=== PATIENT | male | born 1930 | race Caucasian/White ===

== ENCOUNTER 2018-07-27 10:26 | Emergency (ER) | payer MEDICARE, MEDICAID ==
[~2018-07-27] VITALS: Ht 167.6 cm; Wt 74.0 kg
[~2018-07-27 10:26] MED LIST: ACTOS15 MG PO; GLUCOPHAGE500 MG PO; KEFLEX500 MG PO; [UNRECOGNIZED DRUG - REMARK]
[2018-07-27] MEDS ORDERED: LEVEMIR100 UNIT/1 SUBQ (10:57)
[2018-07-27] MEDS ORDERED: BUSPIRONE HCL10 MG PO (10:58)
[2018-07-27] MEDS ORDERED: ARICEPT 5 MG TAB5 MG PO (10:59)
[2018-07-27] MEDS ORDERED: DEPAKOTE 250MG250 M1 PO (10:59)
[2018-07-27] MEDS ORDERED: LEXAPRO 10 MG T10 M2 PO (10:59)
[2018-07-27] MEDS ORDERED: NOVOLOG100 UNIT/1 SUBQ (11:00)
[2018-07-27] MEDS ORDERED: PROSCAR 5MG TABL5 MG PO (11:00)
[2018-07-27] MEDS ORDERED: GLIPIZIDE 10 MG10 MG PO (11:00)
[2018-07-27 11:11] LABS: ABSOLUTE BASOPHILS 0.1 thou/uL (0.0-0.2); ABSOLUTE LYMPHOCYTES 1.5 thou/uL (0.8-5.3); ABSOLUTE MONOCYTES 0.7 thou/uL (0.0-1.2); ABSOLUTE NEUTROPHILS 6.3 thou/uL (1.6-8.1); BASOPHILS 0.6 %; EOSINOPHILS 0.2 %; HEMATOCRIT 40.1 % (42.0-52.0); HEMOGLOBIN 13.3 gm/dL (14.0-18.0); LYMPHOCYTES 17.2 %; MCH 31.6 pg (26.0-34.0); MCHC 33.1 g/dL (28.0-37.0); MCV 95.5 fL (80.0-100.0); MONOCYTES 8.4 %; MPV 7.6 fl. (7.2-11.1); NUCLEATED RBCS 0 /100WBC; PLATELET COUNT* 251 thou/uL (150-400); POLYS 73.6 %; RDW-CV 12.9 % (10.5-14.5); WBC 8.5 thou/uL (4.0-11.0)
[2018-07-27 11:18] LABS: ANION GAP 4 mmol/L (7-16); BUN 23 mg/dL (7-18); CALCIUM 9.2 mg/dL (8.5-10.1); CHLORIDE 99 mmol/L (98-107); CO2 29 mmol/L (21-32); CREATININE 1.5 mg/dL (0.6-1.3); GLUCOSE 311 mg/dL (70-99); POTASSIUM 4.8 mmol/L (3.5-5.1); SODIUM 132 mmol/L (136-145)
[2018-07-27 11:19] LABS: URINE BILIRUBIN NEGATIVE (Negative); URINE BLOOD NEGATIVE (Negative); URINE CLARITY CLEAR; URINE COLOR YELLOW; URINE GLUCOSE-RANDOM 2+ (Negative); URINE KETONES NEGATIVE (Negative); URINE LEUKOCYTES-REFLEX 1+ (Negative); URINE NITRITE-REFLEX NEGATIVE (Negative); URINE PROTEIN NEGATIVE (Negative); URINE UROBILINOGEN 0.2 E.U./dl (0.2-1.0)
[2018-07-27 11:25] LABS: ALBUMIN 3.5 g/dL (3.4-5.0); ALKALINE PHOSPHATASE 65 U/L (46-116); SGOT 18 U/L (15-37); SGPT 16 U/L (30-65); TOTAL BILIRUBIN 0.4 mg/dL (<0.1-1.0); TOTAL PROTEIN 7.2 g/dL (6.4-8.2); TROPONIN-I LEVEL <0.06 ng/mL (<0.06)
[2018-07-27 11:40] LABS: SQUAMOUS >10 Many /LPF (0-3); URINE RBC 0-2 Rare /HPF (0-2); URINE WBC-REFLEX >25 Many /HPF (0-5)
[2018-07-27 11:41] LABS: HYALINE CASTS 0-3 Few /LPF (None Seen); MUCUS None Seen strn/LPF (None Seen)
[2018-07-27 11:42] LABS: CRYSTALS None Seen /LPF (None Seen)
[2018-07-27] MEDS ORDERED: KEFLEX500 M1 PO (11:47)
[2018-07-27 12:04] VITALS: BP 148/72
--- NOTE | 2018-07-27 16:33 | EKG ---
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 : 1930 Requested By: Brian Wilson Order Number: [id number] MD: Dao Henderson Measurements Intervals [place] Rate: 65 P: -47 KS: 335 QRS: -24 QRSD: 128 T: -3 QT: 476 QTc: 495 Interpretive Statements Sinus or ectopic atrial rhythm Sinus pause Prolonged KS interval Left bundle branch block No previous ECG available for comparison Electronically Signed On 07-27-2018 16:33:48 CDT by Dao Henderson [email or web address] <ELECTRONICALLY SIGNED> By: Dao Henderson MD, [facility] 07/27/18 1633 1117 111 Dao Henderson MD, FAC /EPI
== END 2018-07-27 12:05 | disposition home or self-care (01) ==
LOC: M.ERS 10:26
PROVIDERS: Emergency Medicine Emergency Medical Services
DX: N39.0 Urinary tract infection, site not specified (principal); I25.10 Atherosclerotic heart disease of native coronary artery without angina pectoris; E11.9 Type 2 diabetes mellitus without complications; Z95.1 Presence of aortocoronary bypass graft; Z85.038 Personal history of other malignant neoplasm of large intestine; Z79.4 Long term (current) use of insulin

== ENCOUNTER 2019-12-10 19:54 | Inpatient (IN) | payer MEDICARE, MEDICAID ==
[~2019-12-10] VITALS: Ht 177.8 cm; Wt 59.9 kg
--- NOTE | ~2019-12-10 | CON ---
[address] [address] CONSULTATION Name: ANGELA WATKINS Room: [address] IN .R.#: [id number] Admission: 12/10/19 Attend Phys: Kevin Guillen MD Discharge: Date of : 31 Report #: [id number] THIS REPORT FOR: //name// CC: Kevin Gaspar DATE OF SERVICE: 12/14/2019 REQUESTING PHYSICIAN: Chris Stanton MD REASON FOR CONSULTATION: Acute kidney injury and hypernatremia. HISTORY OF PRESENT ILLNESS: The patient is an 89-year-old man with medical history significant for advanced dementia, coronary artery disease, and diabetes mellitus type 2. He was transferred here from [facility] after unwitnessed fall. In the Emergency Room, he was found to be hypernatremic with serum sodium of 152. He also had an acute kidney injury with creatinine of 2.6 and was admitted to the hospital. PAST MEDICAL HISTORY: As I mentioned earlier. FAMILY HISTORY: Noncontributory at this age. SOCIAL HISTORY: longterm resident. Unknown tobacco or alcohol abuse. Also, noncontributory to his age. REVIEW OF SYSTEMS: Unobtainable due to his advanced dementia. PHYSICAL EXAMINATION: GENERAL: He is awake but demented. He does not follow commands. VITAL SIGNS: Blood pressure 136/63, heart rate is 58, respiratory rate is 12, and afebrile. HEENT: Pupils are round. NECK: Fatty. LUNGS: Clear. CARDIOVASCULAR: Regular rate. ABDOMEN: Soft. Jackman is in place. EXTREMITIES: Lower extremities without edema. He got some fungal infection of his toenails. ASSESSMENT: 1. Acute kidney injury, most likely due to urinary retention. Jackman catheter was placed by urologist. 2. Hypernatremia, likely due to volume depletion. 3. Dementia. 4. [place] [address] CONSULTATION Name: ROLAND,ANGELA L Room: [address]#: [id number] Admission: 12/10/19 Attend Phys: Kevin Guillen MD Discharge: Date of : 31 Report #: [id number] PLAN: 1. Keep the Jackman in. 2. Continue IV fluids with hypotonic fluids. 3. Follow labs. Thank you very much for asking me to see this patient. By: 1107 [id number] Sousa MD /nt
--- NOTE | ~2019-12-10 | CON ---
[address] [address] CONSULTATION Name: ANGELA WATKINS Room: [address] IN .R#: [id number] Admission: 12/10/19 Attend Phys: Kevin Guillen MD Discharge: Date of : 31 Report #: [id number] THIS REPORT FOR: //name// CC: Kevin Gaspar DATE OF SERVICE: 12/16/2019 INFECTIOUS DISEASE CONSULTATION ATTENDING PHYSICIAN: Dr. Guillen. REASON FOR CONSULTATION: Possible sepsis. HISTORY OF PRESENT ILLNESS: The patient is an 89-year-old white man admitted initially through the Emergency Room to the regular floor. He is subsequently found to be tachypneic with metabolic acidosis and febrile as well as on admission some leukocytosis. He is started on broad-spectrum antibiotic coverage. He is in the ICU, unable to give any information whatsoever. All information on this patient is gathered from the review of his records. He is hospitalized on 12/10/2019 after having suffered a fall at the [facility]. Currently, the patient is unresponsive, tachypneic in the ICU with atrial fibrillation. His arterial blood gases revealed metabolic acidosis, uncompensated with respiratory alkalosis requiring 2 liters of oxygen. He has received vancomycin, Zosyn and metronidazole. All information gathered from review of records. DRUG ALLERGIES: None listed. MEDICATIONS: The patient is currently on vancomycin 500 mg IV b.i.d., Zosyn 3.375 g IV every 8 hours. He is receiving D5 for the normal saline 1000 mL every 20 hours p.r.n., acetaminophen, rivastigmine 4.6 mg transdermal daily, folic acid 1 mg IV daily, nystatin, triamcinolone topical, tamsulosin 0.4 mg at bedtime, escitalopram oxalate 10 mg at bedtime, valproate 125 mg b.i.d., lorazepam 0.5 mg IV p.r.n., olanzapine 5 mg IM t.i.d., hyoscyamine sulfate 0.125 mg p.r.n. intravenously. He is also on treatment with metronidazole 500 mg IV every 8 hours, famotidine, subcutaneous heparin, lorazepam p.r.n., finasteride by mouth p.r.n., glucagon, insulin per sliding scale. PAST MEDICAL HISTORY: Coronary artery disease, coronary artery bypass grafting, previous colon cancer, diabetes mellitus, right knee surgery. On admission, he has significant leukocytosis. He has azotemia as well. SOCIAL HISTORY: See [facility], old records. FAMILY HISTORY: See [facility] [place] [address] CONSULTATION Name: ANGELA WATKINS Room: [address] IN .R.#: [id number] Admission: 12/10/19 Attend Phys: Kevin Guillen MD Discharge: Date of : 31 Report #: [id number] REVIEW OF SYSTEMS: Unable to obtain. PHYSICAL EXAMINATION: GENERAL: Elderly white man, closing eyes tightly, I can examine those. VITAL SIGNS: Presenting with following vital signs: Temperature 100.3 at 4:00 p.m. yesterday, pulse 104, respirations 18, BP 117/63. No further entries since that time. The patient is on 2 liters nasal cannula and I suspect saturation is normal. HEENMT: Head normocephalic, atraumatic. Pupils, unable to examine. Mouth: Dry mucous membrane, missing teeth. NECK: Supple. LUNGS: Basilar crackles. HEART: Rhythm is irregularly irregular with a loud ejection murmur on the left sternal border. ABDOMEN: Reveals surgical scar of cholecystectomy, soft, no masses or megaly. GENITALIA AND RECTAL: Deferred. EXTREMITIES: No clubbing, cyanosis. NEUROLOGIC: Unable to evaluate. LABORATORY DATA: Sodium 147; potassium 3.5, CO2 of 18, on admission was 26; BUN 33, on admission was 57, creatinine is 2.1, on admission was 2.6; glucose 251; magnesium 1.7; albumin 2.5. Folate and B12 levels are within normal range. NT-proBNP significantly elevated. WBC 9900, hemoglobin 12.6 g/dL and platelets 223,000. White blood cell count differential revealed 84% segmented neutrophils. On admission, the urinalysis revealed glycosuria, trace ketones, trace blood. ABGs yesterday revealed pH 7.28, pCO2 of 23.1, pO2 of 96.5, bicarbonate 10.8. Lactate not done. These set of gases is on 2 liters per minute. MICROBIOLOGY DATA: Blood cultures and urine cultures were ordered as well as sputum culture and those are all pending. RADIOLOGY EVALUATION: Chest x-ray revealed cardiomegaly, bibasilar pulmonary infiltrate, left subclavian central venous catheter. CT scan of abdomen and pelvis revealed status post coronary artery bypass grafting, extensive calcification of intraabdominal arteries and coronary arteries. No hydronephrosis, some liquid stools in colon and edematous appearing thickening of the gastric fundus compatible with gastritis. ASSESSMENT: 1. Severe sepsis, undetermined source. 2. Positive for coronary artery disease, history of coronary artery bypass graft and rule out myocardial infarction. 3. Possible mitral insufficiency. 4. Acute kidney injury on chronic kidney disease. [place] [address] CONSULTATION Name: ANGELA WATKINS Room: [address] IN M.R.#: [id number] Admission: 12/10/19 Attend Phys: Kevin Guillen MD Discharge: Date of : 31 Report #: [id number] 5. Diabetes mellitus. 6. Metabolic acidosis with compensated respiratory alkalosis. 7. Altered mental status secondary to above. SUGGESTIONS: Recommend stat troponin. Continue coverage with Zosyn, vancomycin and Flagyl while picture becomes clear to us. An echocardiogram obtained on 12/10/2019 said to reveal normal ejection fraction, which I doubt. There is moderate aortic valve sclerosis on echocardiogram and mitral annular calcifications on echocardiogram. Dr. Gulilen, thank you for requesting my suggestions. By: [id number] Reyes MD /nt
[~2019-12-10 19:54] MED LIST changes: +ARICEPT 5 MG TAB5 MG PO; +BUSPIRONE HCL10 MG PO; +DEPAKOTE 250MG250 M1 PO; +GLIPIZIDE 10 MG10 MG PO; +KEFLEX500 M1 PO; +LEVEMIR100 UNIT/1 SUBQ; +LEXAPRO 10 MG T10 M2 PO; +NOVOLOG100 UNIT/1 SUBQ; +PROSCAR 5MG TABL5 MG PO
[2019-12-10 19:57] VITALS: BP 104/59
[2019-12-10] MEDS ORDERED: ATIVAN0.5 M1 PO (20:35)
[2019-12-10] MEDS ORDERED: VALPROIC A250 MG/51 PO (20:36)
[2019-12-10 21:17] LABS: HEMATOCRIT 46.5 % (42.0-52.0); HEMOGLOBIN 15.5 gm/dL (14.0-18.0); MCH 31.7 pg (26.0-34.0); MCHC 33.3 g/dL (28.0-37.0); MCV 95.2 fL (80.0-100.0); MPV 8.9 fl. (7.2-11.1); NUCLEATED RBCS 0 /100WBC; PLATELET COUNT* 371 thou/uL (150-400); RBC 4.89 mil/uL (4.50-6.00); RDW-CV 13.2 % (10.5-14.5)
[2019-12-10 21:33] LABS: PROTIME 10.5 Seconds (9.20-11.50)
[2019-12-10 21:40] LABS: ABSOLUTE LYMPHOCYTES 3.8 thou/uL (0.8-5.3); ABSOLUTE MONOCYTES 1.7 thou/uL (0.0-1.2); ABSOLUTE NEUTROPHILS 15.5 thou/uL (1.6-8.1); PLATELET ESTIMATE ADEQUATE
--- NOTE | 2019-12-10 21:40 | NUR ---
UNABLE TO OBTAIN IV ACCESS AND DR MATA AWARE
[2019-12-10 21:41] LABS: CLUMPED PLTS OCCASIONAL
[2019-12-10 22:00] LABS: CALCIUM 10.1 mg/dL (8.5-10.1); CREATININE 2.6 mg/dL (0.6-1.3); POTASSIUM 3.6 mmol/L (3.5-5.1)
[2019-12-10 22:05] LABS: ALBUMIN 3.9 g/dL (3.4-5.0); TOTAL BILIRUBIN 0.3 mg/dL (<0.1-1.0); TOTAL PROTEIN 8.7 g/dL (6.4-8.2)
[2019-12-11] VITALS (7 sets, daily range): BP systolic 53–147; BP diastolic 29–103
[2019-12-11] MEDS ORDERED: B-125000 MC1 PO (01:57)
[2019-12-11] MEDS ORDERED: ESCITALOPRA5 MG/5 ML PO (01:58)
[2019-12-11] MEDS ORDERED: LEVEMIR100 UNIT/2 SUBQ (01:59)
[2019-12-11] MEDS ORDERED: PROSCAR 5MG TABL5 M1 PO (01:59)
[2019-12-11] MEDS ORDERED: PROVERA5 MG PO (02:00)
[2019-12-11] MEDS ORDERED: NAMENDA 10 MG T10 MG PO (02:01)
[2019-12-11] MEDS ORDERED: NOVOLOG100 UNIT/1 SUBQ (02:08)
[2019-12-11] MEDS ORDERED: VALPROIC A250 MG/51 PO (02:09)
[2019-12-11] MEDS ORDERED: ATIVAN0.5 M1 PO (02:10)
--- NOTE | 2019-12-11 05:19 | NUR ---
ASSUMED CARE OF PATIENT FROM ER. PATIENT COMBATIVE, AGITATED AND UNCOOPERATIVE. UNABLE TO DO COMPLETE ADMISSION ASSESSMENT OR HAVE PAPERWORK SIGNED. IV FROM ER INFILTRATED, NEW ONE PLACED. NEW ORDER FOR PRN ATIVAN RECIEVED. MITTS PLACED ON HANDS TO PREVENT PATIENT FROM PULLING AT TELE WIRES AND IV, WELL EMPLOYEE SAFETY. MITTS NOT TIED DOWN. REMAINS IMPULSIVE, AND UNABLE TO REORIENT. FLUIDS RUNNING PER ORDERS. PATIENT IN ROOM CLOSE TO NURSING STATION. POC GOALS ESTABLISHED. WILL CONTINUE TO MONITOR CLOSELY.
--- NOTE | 2019-12-11 09:24 | NUR ---
ASSUMED CARE OF PATIENT THIS AM AT 0730. PATIENT IS IN BED WITH HIS EYES CLOSED THIS AM. HE BECOMES AGITATED WITH TACTILE STIMULATION. PATIENT IS PULLING AT LINES AND ATTEMPTING TO SCRATCH AND HIT STAFF. HIS BLOOD SUGAR WAS ELEVATED THIS AM. DR COTTRELL NOTIFIED AND ORDERS GIVEN TO DC IV FLUIDS. PATIENT PROTECTED FROM SELF HARM AND MONITORED Q 1 HR FOR SAFETY. TELE SHOWS SR WITH 1DAVB,PVCSAND PACS. WILL CONTINUE TO MONITOR.
--- NOTE | 2019-12-11 10:42 | NUR ---
CM ATTMEPTED ASSESSMENT. PT MINIMALLY RESPONSIVE. DIFFICULT TO ROUSE AND PRESENT W/GARBLE SPEECH. CM ATTMEPTED TO CONTACT PT'S SON, CHIN VIA TELEPHONE, NO ANSWER. [phone]. [phone].
[2019-12-11 14:00] LABS: ABSOLUTE LYMPHOCYTES 1.5 thou/uL (0.8-5.3); ABSOLUTE MONOCYTES 0.9 thou/uL (0.0-1.2); ABSOLUTE NEUTROPHILS 11.3 thou/uL (1.6-8.1); BASOPHILS 0.2 %; EOSINOPHILS 0.2 %; HEMATOCRIT 41.4 % (42.0-52.0); LYMPHOCYTES 10.8 %; MCH 32.1 pg (26.0-34.0); MCHC 33.8 g/dL (28.0-37.0); MONOCYTES 6.5 %; MPV 9.2 fl. (7.2-11.1); NUCLEATED RBCS 0 /100WBC; POLYS 82.3 %; RBC 4.36 mil/uL (4.50-6.00); RDW-CV 13.3 % (10.5-14.5); WBC 13.7 thou/uL (4.0-11.0)
[2019-12-11 14:02] LABS: CALCIUM 8.9 mg/dL (8.5-10.1); CREATININE 2.8 mg/dL (0.6-1.3); POTASSIUM 4.4 mmol/L (3.5-5.1)
[2019-12-11 14:05] LABS: PLATELET COUNT* 266 thou/uL (150-400)
--- NOTE | 2019-12-11 14:35 | EKG ---
[place] [address] ELECTROCARDIOGRAM REPORT Name: ANGELA WATKINS Room: [address] ADM IN .R.#: [id number] Admission: 12/10/19 Attend Phys: Kevin Guillen MD Discharge: Date of : 31 Report #: [id number] THIS REPORT FOR: //name// [facility] ED Test Date: 2019-12-10 Test Time: 22:25:34 Pat Name: ANGELA WATKINS Department: Room: [facility] Gender: M Security Tester: : 1930 Requested By: Socorro Santos Order Number: [id number] MD: Uli Lei Measurements Intervals [place] Rate: 96 P: CA: QRS: -46 QRSD: 142 T: 142 QT: 367 QTc: 464 Interpretive Statements Atrial fibrillation Left bundle branch block Compared to ECG 07/27/2018 11:17:09 Ectopic atrial rhythm no longer present Sinus pause or arrest no longer present First degree AV block no longer present Electronically Signed On 12-11-2019 14:34:57 STERILIZER OPERATOR by Uli Lei [email or web address] <ELECTRONICALLY SIGNED> By: Uli Lei MD, FACC 12/11/19 1434 2225 2225 Uli Lei MD, FAC /EPI
[2019-12-11 18:27] LABS: URINE BILIRUBIN NEGATIVE (Negative); URINE BLOOD TRACE (Negative); URINE CLARITY CLEAR; URINE COLOR YELLOW; URINE GLUCOSE-RANDOM 3+ (Negative); URINE KETONES TRACE (Negative); URINE LEUKOCYTES-REFLEX NEGATIVE (Negative); URINE NITRITE-REFLEX NEGATIVE (Negative); URINE PROTEIN NEGATIVE (Negative); URINE SPECIFIC GRAVITY 1.025 (1.005-1.030); URINE UROBILINOGEN 0.2 E.U./dl (0.2-1.0)
[2019-12-12 04:13] VITALS: BP 148/76
--- NOTE | 2019-12-12 05:05 | NUR ---
PT. HAS REMAINED RESTLESS AND COMBATIVE THROUGHOUT SHIFT. MITTENS KEPT ON UNTIED THROUGHOUT SHIFT. IN AND OUT OF AFIB WITH VERY FREQUENT PVC'S. ZYPREXA AND BNO SUPPOSITORY GIVEN THIS SHIFT WITH VERY MINIMAL RELIEF. REMAINS IN ROOM CLOSE TO NURSING STATION, WILL CONTINUE TO MONITOR.
[2019-12-12 08:00] VITALS: BP 119/53
[2019-12-12 12:14] VITALS: BP 95/71
--- NOTE | 2019-12-12 15:14 | 2DMMODE ---
[place] [address] 2 D/M-MODE ECHOCARDIOGRAM Name: ANGELA WATKINS Room: [address] IN [facility]#: [id number] Admission: 12/10/19 Attend Phys: Kevin Guillen, Discharge: Date of : 32 Date of Service: 12/12/19 1513 Report #: [id number] THIS REPORT FOR: //name// APPROVED REPORT Study performed: 12/12/2019 13:19:14 EXAM: Comprehensive 2D, Doppler, and color-flow Echocardiogram Patient Location: In-Patient Room #: [facility] BSA: 1.78 HR: 100 bpm Other Information Study Quality: Fair Technically limited study due to uncooperative patient. Indications Murmur 2D Dimensions IVSd: 13.50 (7-11mm) LVOT Diam: 20.84 (18-24mm) LVDd: 51.77 mm PWd: 13.32 (7-11mm) Ascending Ao: 31.82 (22-36mm) LVDs: 38.42 (25-40mm) Aortic Root: 24.92 mm Volumes Left Atrial Volume (Systole) LA ESV Index: 15.40 mL/m2 Aortic Valve AoV Peak Gonsalo.: 2.46 m/s AO Peak Gr.: 24.26 mmHg LVOT Max P.30 mmHg AO Mean Gr.: 13.94 mmHg LVOT Mean P.24 mmHg LVOT Max V: 0.76 m/s AO V2 VTI: 40.33 cm LVOT Mean V: 0.52 m/s LIANA (VTI): 1.22 cm2 LVOT V1 VTI: 14.44 cm Mitral Valve E/A Ratio: 0.65 MV Decel. Time: 331.51 [place] [address] 2 D/M-MODE ECHOCARDIOGRAM Name: ANGELA WATKINS Room: [address] IN .#: [id number] Admission: 12/10/19 Attend Phys: Kevin Guillen, Discharge: Date of : 31 Date of Service: 12/12/19 1513 Report #: [id number] MV E Max Gonsalo.: 0.48 m/s MV PHT: 96.14 ms MVA (PHT): 2.29 cm2 TDI E/Lateral E': 4.00 E/Medial E': 4.80 Medial E' Gonsalo.: 0.10 m/s Lateral E' Gonsalo.: 0.12 m/s Pulmonary Valve PV Peak Gonsalo.: 1.10 m/s PV Peak Gr.: 4.80 mmHg Tricuspid Valve RAP Estimate: 5.00 mmHg TR Peak Gr.: 17.07 mmHg RVSP: 22.07 mmHg PA Pressure: 22.07 mmHg Left Ventricle The left ventricle is normal size. There is normal LV segmental wall motion. Mild concentric left ventricular hypertrophy. Left ventricular systolic function is normal. The left ventricular ejection fraction is within the normal range. LVEF is 55%. Grade I - abnormal relaxation pattern. Right Ventricle The right ventricle is normal size. The right ventricular systolic function is normal. Atria The left atrium size is normal. The right atrium size is normal. Aortic Valve Moderate aortic valve sclerosis. No aortic regurgitation is present. Mild to moderate aortic stenosis. Mitral Valve Mild mitral annular calcification. Mild mitral regurgitation. No evidence of mitral valve stenosis. Tricuspid Valve The tricuspid valve is normal in structure. Mild tricuspid regurgitation. Pulmonic Valve The pulmonary valve is normal in structure. [place] [address] 2 D/M-MODE ECHOCARDIOGRAM Name: ANGELA WATKINS Room: [address]#: [id number] Admission: 12/10/19 Attend Phys: Kevin Guillen, Discharge: Date of : 31 Date of Service: 12/12/19 1513 Report #: [id number] valvular regurgitation. Great Vessels The aortic root is normal in size. IVC is normal in size and collapses >50% with inspiration. Pericardium There is no pericardial effusion. <Conclusion> The left ventricle is normal size. Mild concentric left ventricular hypertrophy. Left ventricular systolic function is normal. The left ventricular ejection fraction is within the normal range. LVEF is 55%. Grade I - abnormal relaxation pattern. The right ventricle is normal size. The left atrium size is normal. Moderate aortic valve sclerosis. No aortic regurgitation is present. Mild to moderate aortic stenosis. Mild mitral annular calcification. Mild mitral regurgitation. No evidence of mitral valve stenosis. The tricuspid valve is normal in structure. Mild tricuspid regurgitation. IVC is normal in size and collapses >50% with inspiration. There is no pericardial effusion. There is normal LV segmental wall motion. <ELECTRONICALLY SIGNED> By: Dao Henderson MD, FACC 12/12/19 [phone] Dao Henderson MD, FACC /INF
[2019-12-12 16:00] VITALS: BP 92/42
[2019-12-12 16:02] LABS: CALCIUM 8.5 mg/dL (8.5-10.1); CREATININE 2.2 mg/dL (0.6-1.3); MAGNESIUM 2.6 mg/dL (1.8-2.4); POTASSIUM 4.1 mmol/L (3.5-5.1)
--- NOTE | 2019-12-12 19:28 | NUR ---
ASSUMED PT CARE AT 0730, FULL ASSESMENT DONE CHARTED. PT DISORIENTED, CONFUSED, COMBATIVE, REFUSING TO EAT OR DRINK. PT HAS SOFT MITS TO BILAT HANDS FOR SAFTY, ATTEMPTS TO PULL AT NAVARRO AND IV. NAVARRO IN PLACE DRAINING DARK YELLOW URINE. PTS VSS, AFIB ON THE MONITOR, ON RA, BATH GIVEN. PT TURNED Q2HR. WOUND CARE CONSULTD FOR BLOOD BLISTER ON RIGHT UPPER BACK, PHOTO TAKEN AND DRESSED WITH FOAM DRESSING. DISCUSSED PLAN OF CARE WITH PHYSICIAN. REPORT GIVEN NIKKO
[2019-12-12 20:00] VITALS: BP 135/70
[2019-12-12 23:45] VITALS: BP 123/61
[2019-12-13 04:09] VITALS: BP 139/61
--- NOTE | 2019-12-13 05:56 | NUR ---
ASSUMED CARE OF PT AFTER REPORT AT 1930. PT DROWSY & LETHARGIC BUT EASILY AROUSABLE. COMBATIVE AT TIMES. VSS. PHYSICAL ASSESSMENT COMPLETED AND CHARTED. PT ON RA. PT TRACING AFIB/BBB/PVC ON TELE. PT WITH NAVAROR TO DEPENDENT DRAIN. PT TURNED TO SIDES. CALL LIGHT WITHIN REACH.
[2019-12-13 08:00] VITALS: BP 130/57
--- NOTE | 2019-12-13 08:37 | NUR ---
CM left for Pt's son regarding living situation. CM spoke with Pt's brother, but brother states that he doesn't know much about where Pt lives or what assistance he needs. Awaiting call back from son.
--- NOTE | 2019-12-13 10:36 | NUR ---
WOUND CARE NOTE: CONSULT RECEIVED FOR RIGHT UPPER BACK BLOOD BLISTER PATIENT PRESENTS WITH A PARTIAL THICKNESS LESION TO THE RIGHT POSTERIOR TORSO, DISTAL TO THE SCAPULA. PURPLE, NON-BLANCHING DISCOLORATION. ALSO HAS AN AREA TO THE MOST LATERAL ASPECT THAT APPEARS TO BE FADING, RED DISCOLORATION. THE PURPLE DISCOLORATION IS OPEN, DID NOT APPEAR ANY DRAINAGE AT THIS TIME. AREA MEASURES 2.5X2X0.1. APPLIED VASELINE GAUZE AND COVERED WITH A BORDERED GAUZE. UNABLE TO PROVIDE EDUCATION AT THIS TIME DUE TO PATIENT'S MENTATION. RECOMMEND CHANGE DRESSING DAILY ENCOURAGE GOOD NUTRTION/HYDRATION FOR WOUND HEALING MONITOR CLOSELY FOR ANY CHANGES, NOTIFY WOUND CARE TEAM WITH ANY CONCERNS
[2019-12-13 12:00] VITALS: BP 117/60
[2019-12-13 14:39] LABS: ALBUMIN 2.8 g/dL (3.4-5.0); CALCIUM 8.1 mg/dL (8.5-10.1); CREATININE 2.1 mg/dL (0.6-1.3); POTASSIUM 4.8 mmol/L (3.5-5.1); TOTAL BILIRUBIN 0.8 mg/dL (<0.1-1.0); TOTAL PROTEIN 6.8 g/dL (6.4-8.2)
[2019-12-13 15:44] LABS: ABSOLUTE LYMPHOCYTES 1.2 thou/uL (0.8-5.3); ABSOLUTE MONOCYTES 0.9 thou/uL (0.0-1.2); ABSOLUTE NEUTROPHILS 9.9 thou/uL (1.6-8.1); BASOPHILS 0.1 %; HEMATOCRIT 39.1 % (42.0-52.0); LYMPHOCYTES 9.8 %; MCH 32.5 pg (26.0-34.0); MCHC 33.2 g/dL (28.0-37.0); MCV 97.8 fL (80.0-100.0); MONOCYTES 7.2 %; MPV 9.2 fl. (7.2-11.1); NUCLEATED RBCS 0 /100WBC; PLATELET COUNT* 210 thou/uL (150-400); POLYS 82.9 %; RBC 3.99 mil/uL (4.50-6.00); RDW-CV 13.5 % (10.5-14.5)
[2019-12-13 16:00] VITALS: BP 104/53
[2019-12-13 20:34] VITALS: BP 130/73
[2019-12-14] VITALS (7 sets, daily range): BP systolic 103–160; BP diastolic 40–66
--- NOTE | 2019-12-14 05:02 | NUR ---
RECEIVED REPORT FROM JAMIE WEBER AT 0230. PT AFIB WITH BBB ON ADHESIVE PRIMER. PT COINTINUES TO BE RESTLESS. MITTENS IN PLACE FOR SAFETY. Q2H REPOSITIONING. HIGH FALL PREACAUTIONS IN PLACE. HOURLY ROUNDING COMPLETED. CALL LIGHT WITHIN REACH.
[2019-12-14 11:53] LABS: CALCIUM 8.2 mg/dL (8.5-10.1); CREATININE 1.9 mg/dL (0.6-1.3); POTASSIUM 4.4 mmol/L (3.5-5.1)
--- NOTE | 2019-12-14 13:17 | NUR ---
CM left another VM for Pt's son, awaiting call back
--- NOTE | 2019-12-14 18:30 | NUR ---
RECEIVED REPORT FROM ANNA MARIE AYALA. ASSUMED PT CARE AROUND 0730. PT CONBATIVE AND CONFUSED, IMPULSIVE. DISORIENTED X4, MOSTLY NON-VERBAL. PRESS OPERATOR HELPER IN PLACE TRACING ABIB WITH BBB AND PVC'S. AM ASSESSMENT AND VITALS COMPLETED CHARTED. NEW IV STARTED TO LEFT FA BY KASSANDRA AYALA, FLUIDS INFUSING. MEDS PER EMAR. PT WITH NO APPETITE THIS SHIFT, REFUSED ALL MEALS DESPITE MULTIPLE ATTEMPTS TO FEED HIM. PT DID NO APPEAR IN ANY PAIN OR DISCOMFORT THIS SHIFT. MITTENS IN PLACE INTERMITTENTLY FOR SAFETY. NAVARRO IN PLACE TO DD, URINE YELLOW. PT TURNED Q2HRS. BARRIER CREAM TO MAXINE AREA. PT CURRENTLY RESTING IN BED. CALL LIGHT IS WITHIN REACH. HOURLY ROUNDING PERFORMED. FALL PRECAUTIONS IN PLACE.
[2019-12-15] VITALS (21 sets, daily range): BP systolic 75–140; BP diastolic 43–78
--- NOTE | 2019-12-15 03:59 | NUR ---
PT ALERT CONFUSED, COMBATIVE, IMPULSIVE. TURN Q 2HRS. ON RA. NA-BICARB AT 80MLS/HR. TELEMETRY SHOWS AFIB. PT BECAME MORE AGGITATED AND WAS TRYING TO GET OOB. ATIVAN GIVEN. PT RESTING QUIETLY.
[2019-12-15 05:47] LABS: ALBUMIN 2.5 g/dL (3.4-5.0); CALCIUM 8.2 mg/dL (8.5-10.1); CREATININE 1.8 mg/dL (0.6-1.3); POTASSIUM 4.1 mmol/L (3.5-5.1); TOTAL BILIRUBIN 0.9 mg/dL (<0.1-1.0); TOTAL PROTEIN 6.2 g/dL (6.4-8.2)
[2019-12-15 17:38] LABS: BE -13.8 mmol/L (-2 to +3); PCO2 23.1 mmHg (35.0-45.0); PO2 96.5 mmHg (75.0-100.0)
[2019-12-15 17:40] LABS: pH 7.287 (7.340-7.450)
--- NOTE | 2019-12-15 19:00 | NUR ---
ASSUMED PT CARE AT 0700, PT ALERT AT TIMES TO TACTILE STIMULI, LETHARGIC, UNABLE TO MAKE NEEDS KNOWN. PASSENGER LOCOMOTIVE ENGINEER TRACING AFIB, HR TACHY, FEBRILE WITH LOW GRADE TEMP OF 99-100, PRN TYLENOL SUPPOSITORY ADMINISTERED, PT TOLERATED WELL AND TEMP DROPPED TO 98.9. 2LPM O2 PLACED ON PT D/T RESPIRATORY RATE OF 28, O2 SAT 96%, ABG'S DRAWN, SHOWING CRITICAL LABS WHICH WERE CALLED IN TO DR UPTON AND MANAGED CARE LIAISON DR. LAN. NAVARRO REMAINS PATENT, DRAINING EDDIE COLORED URINE. PT WAS GIVEN NEW ORDERS AND TRANSFERRED TO ICU POST CT SCAN. REPORT TO BE CALLED IN TO ICU NURSE. Q2 HOUR TURNS AND HOURLY ROUNDING COMPLETED, FAMILY NOTIFIED OF ROOM CHANGE AND EDUCATED ON CODE STATUS. SON, CHIN BRING UP DPOA PAPERWORK TO SIGN DNR.
[2019-12-15 20:35] LABS: CALCIUM 8.4 mg/dL (8.5-10.1)
[2019-12-15 20:40] LABS: ALBUMIN 2.5 g/dL (3.4-5.0); TOTAL BILIRUBIN 0.7 mg/dL (<0.1-1.0); TOTAL PROTEIN 6.7 g/dL (6.4-8.2)
[2019-12-15 22:37] LABS: ABSOLUTE LYMPHOCYTES 0.7 thou/uL (0.8-5.3); ABSOLUTE MONOCYTES 0.9 thou/uL (0.0-1.2); BASOPHILS 0.3 %; EOSINOPHILS 0.1 %; HEMATOCRIT 38.5 % (42.0-52.0); HEMOGLOBIN 12.7 gm/dL (14.0-18.0); LYMPHOCYTES 6.6 %; MCH 32.3 pg (26.0-34.0); MCHC 32.9 g/dL (28.0-37.0); MCV 98.2 fL (80.0-100.0); MONOCYTES 8.7 %; MPV 8.6 fl. (7.2-11.1); NUCLEATED RBCS 0 /100WBC; PLATELET COUNT* 218 thou/uL (150-400); POLYS 84.3 %; RBC 3.92 mil/uL (4.50-6.00); RDW-CV 14.3 % (10.5-14.5); WBC 10.7 thou/uL (4.0-11.0)
[2019-12-16] VITALS (77 sets, daily range): BP systolic 74–136; BP diastolic 40–91
[2019-12-16 04:16] LABS: HEMATOCRIT 36.5 % (42.0-52.0); HEMOGLOBIN 12.6 gm/dL (14.0-18.0); MCH 33.2 pg (26.0-34.0); MCHC 34.5 g/dL (28.0-37.0); MCV 96.3 fL (80.0-100.0); RBC 3.79 mil/uL (4.50-6.00); RDW-CV 13.8 % (10.5-14.5); WBC 9.9 thou/uL (4.0-11.0)
[2019-12-16 04:30] LABS: ALBUMIN 2.1 g/dL (3.4-5.0); CALCIUM 7.5 mg/dL (8.5-10.1); CREATININE 2.1 mg/dL (0.6-1.3); MAGNESIUM 1.7 mg/dL (1.8-2.4); POTASSIUM 3.5 mmol/L (3.5-5.1); TOTAL BILIRUBIN 0.6 mg/dL (<0.1-1.0); TOTAL PROTEIN 5.7 g/dL (6.4-8.2)
--- NOTE | 2019-12-16 06:54 | NUR ---
PATIENT ON UNIT AT 1945. REPORT RECIEVED FROM ИВАН AYALA. PATIENT HAS BEEN LARGELY UNRESPONSIVE FOR THE MAJORITY OF THE SHIFT. WHEN THE PATIENT IS ABLE TO RESPOND, HE DOES NOT FOLLOW COMMANDS AND IS VERY AGITATED AND COMBATIVE WITH STAFF. ATTEMPTS TO ORIENT PATIENT WERE UNSUCCESSFUL. PATIENT NEEDED TO HAVE A CENTRAL LINE PLACED DUE TO POOR PERIPHERAL ACCESS AND THE NECESSITY TO REPLACE FLUIDS AND MEDICATION ADMINISTRATION. DR. ИВАН SOFIA CALLED IN TO PLACE CENTRAL LINE. XRAY CONFIRMED PLACEMENT. URINE CULTURE SENT THIS SHIFT. STILL NEED TO COLLECT SPUTUM SAMPLE FOR CULTURE. PATIENT HAS BEEN IN AFIB WITH NUMEROUS PVC'S. PER TELEMETRY NURSE, PATIENT'S SON WAS TO COME TO HOSPITAL AND SIGN A DNR FOR THE PATIENT. THE SON DID NOT SHOW UP NOR CALL THE HOSPITAL TONIGHT. A RESULT, THE PATIENT IS STILL A FULL CODE. [facility]
--- NOTE | 2019-12-16 07:44 | NUR ---
SPOKE WITH SON CHIN ON THE PHONE WHO IS PT'S SON. CHIN WILL COME IN WITH DPOA PAPER WORK AND REQUEST THAT HI FATHER BE COMFORT CARE ONLY. WILL CONTINUE TO ASSESS.
--- NOTE | 2019-12-16 18:02 | NUR ---
PT WOULD FIGHT OFF ALL ORAL CARE AND ANY SUCTIONING THIS SHIFT. FAMILY VISITED AND AGREED THAT PT SHOULD BE DNR.
[2019-12-17] VITALS (36 sets, daily range): BP systolic 87–144; BP diastolic 31–84
[2019-12-17 06:31] LABS: HEMATOCRIT 38.5 % (42.0-52.0); HEMOGLOBIN 12.9 gm/dL (14.0-18.0); MCH 32.4 pg (26.0-34.0); MCHC 33.5 g/dL (28.0-37.0); MCV 96.7 fL (80.0-100.0); MPV 8.8 fl. (7.2-11.1); RBC 3.98 mil/uL (4.50-6.00); RDW-CV 13.9 % (10.5-14.5); WBC 9.4 thou/uL (4.0-11.0)
[2019-12-17 06:50] LABS: ALBUMIN 2.2 g/dL (3.4-5.0); CALCIUM 7.9 mg/dL (8.5-10.1); CREATININE 1.8 mg/dL (0.6-1.3); MAGNESIUM 1.8 mg/dL (1.8-2.4); POTASSIUM 3.4 mmol/L (3.5-5.1); TOTAL BILIRUBIN 0.5 mg/dL (<0.1-1.0); TOTAL PROTEIN 5.8 g/dL (6.4-8.2); TROPONIN-I LEVEL 0.23 ng/mL (<0.06)
--- NOTE | 2019-12-17 07:25 | NUR ---
ASSESSMENTS CHARTED. PATIENT BECAME AGITATED PULLING AT LINES AND ATTEMPTING TO CLIMB OUT OF BED THIS SHIFT. CALLED PHYSICIAN FOR ORDERS AND ADMINISTERED MEDICATIONS PER ORDERS. PATIENT DID HAVE 2 BOWEL MOVEMENTS THIS SHIFT. PATIENT REMAINS CONFUSED AND DISORIENTED, NO VERBAL RESPONSES FROM THE PATIENT. HE DID BECOME MORE ALERT THIS SHIFT AND REQUIRED CONSTANT REDIRECTION. PATIENT'S BLOOD SUGARS INCREASED OVER 300 THIS SHIFT. PATIENT IS NOW ON MODERATE DOSE SS INSULIN. NO OTHER SIGNIFICANT EVENTS THIS SHIFT.
--- NOTE | 2019-12-17 08:20 | OP ---
[address] [address] OPERATIVE REPORT Name: ANGELA WATKINS Room: [address] IN M.R.#: [id number] Admission: 12/10/19 Attend Phys: Kevin Guillen MD Discharge: Date of : 32 Report #: [id number] THIS REPORT FOR: //name// CC: Kevin Gaspar DATE OF SERVICE: 12/15/2019 PREOPERATIVE DIAGNOSIS: Altered mental status. POSTOPERATIVE DIAGNOSIS: Altered mental status. OPERATIVE PROCEDURE: Placement of left subclavian triple-lumen catheter. ANESTHESIA: Local. DESCRIPTION OF PROCEDURE: The patient was in the supine position and the left subclavicular area was prepped and draped in a sterile fashion and a timeout taken. I then infiltrated the infraclavicular space with 1% lidocaine. Using Seldinger technique, I tunneled a needle into the subclavian vein and aspirated blood and removed the syringe and passed the guidewire into the superior vena cava with ectopy noted and the wire pulled back, and the needle removed. A small stab incision around the wire with a #11 scalpel blade. A dilator was passed over the wire, then a triple-lumen catheter 15 cm and the wire retrieved. I aspirated blood from all 3 ports and flushed it with saline. The catheter was then secured with sutures and a Biopatch was placed at the entry site and sealed with an operative site ending the operative procedure. Estimated blood loss 2 mL. The patient had a chest x-ray that showed no evidence of pneumothorax and the line in the superior vena cava. <ELECTRONICALLY SIGNED> By: Milana Zepeda MD 12/17/1920 2219 [id number] Zepeda MD /nt
--- NOTE | 2019-12-17 11:30 | NUR ---
[place]: DR COTTRELL MET WITH PT'S SON/IFEANYI TO DISCUSS RETURN WITH LTC WITH HOSPICE. MET WITH IFEANYI, HE STATED HE WAS THE OLDEST CHILD BUT THAT CHIN/SON IS DPOA. NO COPY IN CHART AND NOT ABLE TO GET COPY FROM [facility]. DISCUSSED HOSPICE CARE WITH IFEANYI, HE PLAN TO GO TO TALK WTIH CHIN TODAY AT WORK AND ASKED THAT HE CONTACT CM TO DISCUSS POSSIBLE DC BACK TO [facility] TOMORROW WITH HOSPICE. THEY HAVE NOT USED HOSPICE IN THE PAST, BUT UNDERSTAND IT IS [facility]. CALL TO [facility], SPOKE WITH COOKIE/QUITA. THEY WILL ACCEPT BACK AT DC AND USE EITHER [facility] OR [facility]. WILL DISCUSS WITH PT'S SON WHEN HE CALLS AND ARRANGE. FAXED UPDATED CLINICAL TO [facility]. PT TO MOVE TO MED/SURG BED
--- NOTE | 2019-12-17 14:04 | NUR ---
THIS HOGSHEAD OPENER ASSUMED CARE OF PT AT 0700 PT WAS TRASNFER TO ROOM 308 PENDING HOSPICE PER FAMILY AND DOCTORS COVERSATION ALL BELONGING AND MEDS PACKED AND SENT WITH PT TRANSPORTED VIA BED WITH NURSING STAFF
--- NOTE | 2019-12-17 14:13 | EKG ---
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 12/17/19 1412 [id number] Kvng Law MD, [facility] /EPI
--- NOTE | 2019-12-17 17:05 | NUR ---
WOUND NURSE: PATIENT PRESENTS WITH DEEP TISSUE INJURY ON THE SACROCOCCYGEAL AREA. IT IS INTACT AT THIS TIME. PATIENT TO BE LEAVING TOMORROW WITH HOSPICE. RECOMMENDED Q 1 TO 2 HOUR SIDE TO SIDE REPOSITIONING TO OFFLOAD SITE. LOW AIRLOSS MATTRESS DEFERRED AFTER DISCUSSING WITH Eulogio COYLE RN IN CASE MANGEMENT PATIENT MAY BE LEAVING TOMORROW.
--- NOTE | 2019-12-17 17:22 | NUR ---
PT RESTING IN BED WITH CALL LIGHT IN REACH. VSS. PT DOES NOT SPEAK OR ANSWER QUESTIONS. PT TRANSFERRED FROM ICU AT 1400. DPOA AND DNR PAPERWORK ON CHART PER Eulogio COYLE CASE MANAGEMENT. PT HAS BEEN SLEEPING SINCE THIS NURSE ASSUMED CARE. PT CLEANED AND REPOSITIONED Q2H. PT HAS NAVARRO, MINIMAL OUTPUT NOTED. BED ALARM ON FOR PT SAFETY. PT HAS L SUBCLAVIAN TRIPLE LUMEN, LINE PATENT. D5 ORDERED AT 70ML/HOUR. PT DX DEMENTIA, NO VERBAL COMMUNICATION. PT ACCUCHECK. [facility] SAW PT THIS AFTERNOON FOR ADMISSION TO THEIR SERVICE UPON DC FROM HOSPITAL. PT TO DC TO [facility] TOMORROW. PT RESTS IN ROOM, WILL CONTINUE TO MONITOR.
--- NOTE | 2019-12-18 05:41 | NUR ---
NO CHANGE IN ASSESSMENT, AWAKE WITH EYES OPEN AT TIMES, NONVERBAL, DOES NOT FOLLOW COMMANDS, IRRITABLE AND AGITATED AT TIMES, PULLING AT IV TUBING, CLOTHING, AND BEDDING, UNABLE TO REDIRECT, ATIVAN 0.5MG IVP GIVEN X1, ATIVAN EFFECTIVE, RESTING QUIELTY WITH EYES CLOSED REST OF NOC AFTER ATIVAN ADMINISTRATION, SERUM POTASSIUM 3.4, POTASSIUM REPLACEMENT STARTED PER ORDERED ELECTROLTYE PRTOCOL, SECOND BAG POTSSSIUM 20MEQ IV INFUSING AT THIS TIME, POTASSIUM TO BE RECHEKED AT 0900 TODAY. REPOSITIONED Q2 AND PRN TO PROMOTE COMFORT AND SKIN INTEGRITY, FALL PRECAUTIONS IN PLACE.
[2019-12-18 07:22] VITALS: BP 90/56
--- NOTE | 2019-12-18 12:00 | NUR ---
FAXED REFERRAL TO [facility]. [phone]; [phone]. WILL CONFIRM WITH ASHLEY/INTAKE THAT PATIENT IS TO BE DC TODAY WITH HOSPICE.
--- NOTE | 2019-12-18 12:39 | NUR ---
Pt to dc to [facility] with [facility] today. VIVIAN spoke with Kati at [facility] who agreed to accept pt home today. 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 SW to fax dc orders. SW faxed ambulance form and will arrange transport for 3 pm. VIVIAN called Suzette with [facility] [phone] and informed of dc time; they plan to meet pt and pt son at [facility] around 3:30pm. VIVIAN spoke with pt son who is in agreement with plan and did not have any other questions or dc needs. Chart copied for continuation of care. [facility] ph [phone].
--- NOTE | 2019-12-18 15:38 | NUR ---
PATIENT DC TO [facility], REPORT CALLED. PT LEFT VIA AMBULANCE AT 1530. HOSPICE SET UP AT [facility]. SEE ASSESSMENT AND VITALS FOR OTHER DETAILS.
--- NOTE | 2019-12-24 12:03 | CON ---
[address] [address] CONSULTATION Name: ANGELA WATKINS Room: [address] IN .R.#: [id number] Admission: 12/10/19 Attend Phys: Kevin Guillen MD Discharge: 12/18/19 Date of : 32 Report #: [id number] THIS REPORT FOR: //name// CC: Kevin Gaspar DATE OF SERVICE: 12/13/2019 HISTORY OF PRESENT ILLNESS: An 89-year-old male patient who is unable to provide any history at all. Rather the patient did not talk to me at all. He did not follow any commands and did not know what his baseline is. I reviewed his records. He is admitted with some hyponatremia. History indicates that he has a history of dementia. He had a fall. The patient was combative last night. It looks like in the Emergency Room, he had a CT scan of the head and a CT scan of the cervical spine that did not show any fracture. REVIEW OF SYSTEMS: A 14-point review of system was carried out and it is all from the record. He apparently has dementia. His creatinine is much higher than his last one checked before this hospitalization was. He apparently has some compression fracture. He has dehydration and renal failure. He has a history of urinary tract infection. That is all the history I can get even from the record. He has been on multiple medications, which includes valproic acid and I suspect he has significant behavioral problems. This is his relevant 14-point review of system, which was carried out from the patient's records. FAMILY HISTORY: Unavailable. PAST MEDICAL HISTORY: Positive for dementia. SOCIAL HISTORY: The records indicate that he probably lives in a mcc. PHYSICAL EXAMINATION: The patient's examination is very limited. He wakes up, he does not say a single word. He does not follow any commands. When I tried to examine his eyes, he closes it shut. I cannot tell about neuromuscular or cranial nerve examination, although I attempted that. I tried to look at the fundus and he did not cooperate. He does not appear to have meningeal sign the best I can tell. He does not have any edema. He is reasonably well built individual. His blood pressure is 104/53, respirations 18, pulse is 48, and temperature is 100.4. LABORATORY DATA: His white count when he came in was 21, now it is 12. He has all kind of abnormalities on his CMP, his sodium is 147 and his GFR is only 30. His blood sugar is 284. His vitamin B12 is normal. IMPRESSION: I agree with your impression that this patient has encephalopathy superimposed on what looks like advanced dementia. [place] [address] CONSULTATION Name: ANGELA WATKINS Room: [address] IN .R.#: [id number] Admission: 12/10/19 Attend Phys: Kevin Guillen MD Discharge: 12/18/19 Date of : 32 Report #: [id number] problems and he also has significantly elevated WBC count, indicating that he probably was septic. RECOMMENDATIONS: I will discuss with you tomorrow. I do not think he will cooperate with MRI. I think we should talk to the family about making him comfort care. He had hyponatremia. That can cause central pontine myelinolysis, the same way hyponatremia can cause and there are multiple documented cases and literature now. He has kidney failure, so he can have impaired thiamine utilization but the biggest problem he appeared to be having is that he has a pretty significant encephalopathy superimposed on his baseline dementia. Dr. La will follow up this patient with you from tomorrow. <ELECTRONICALLY SIGNED> By: Roberth Sarkar MD 12/24/19 1203 180 1929Roberth Sarkar MD /nt
== END 2019-12-18 15:30 | disposition hospice, inpatient (51) | DRG 871 ==
LOC: M.ERS 19:54 → M.2W 22:52 → M.TBA-ER 22:52 → M.2W 12-11 00:35 → M.ICU 12-15 19:45 → M.3W 12-17 14:13
PROVIDERS: Emergency Medicine; Family Medicine; Internal Medicine; Internal Medicine Nephrology; Internal Medicine Pulmonary Disease; ADMIT Internal Medicine
PROC: 02HV33Z Insertion of Infusion Device into Superior Vena Cava, Percutaneous Approach (ICD-10-PCS; principal; 2019-12-15)
DX: A41.9 Sepsis, unspecified organism (principal); G93.41 Metabolic encephalopathy; E43 Unspecified severe protein-calorie malnutrition; S22.020A Wedge compression fracture of second thoracic vertebra, initial encounter for closed fracture; S22.010A Wedge compression fracture of first thoracic vertebra, initial encounter for closed fracture; E87.1 Hypo-osmolality and hyponatremia; N39.0 Urinary tract infection, site not specified; E87.0 Hyperosmolality and hypernatremia; N17.9 Acute kidney failure, unspecified; Z68.1 Body mass index [BMI] 19.9 or less, adult; I24.8 Other forms of acute ischemic heart disease; I50.30 Unspecified diastolic (congestive) heart failure; I13.0 Hypertensive heart and chronic kidney disease with heart failure and stage 1 through stage 4 chronic kidney disease, or unspecified chronic kidney disease; G90.3 Multi-system degeneration of the autonomic nervous system; R79.89 Other specified abnormal findings of blood chemistry; E11.22 Type 2 diabetes mellitus with diabetic chronic kidney disease; N18.9 Chronic kidney disease, unspecified; R65.20 Severe sepsis without septic shock; N47.1 Phimosis; K52.9 Noninfective gastroenteritis and colitis, unspecified; F03.90 Unspecified dementia, unspecified severity, without behavioral disturbance, psychotic disturbance, mood disturbance, and anxiety; I48.91 Unspecified atrial fibrillation; E11.65 Type 2 diabetes mellitus with hyperglycemia; I25.10 Atherosclerotic heart disease of native coronary artery without angina pectoris; Z51.5 Encounter for palliative care; Z66 Do not resuscitate; Z78.1 Physical restraint status; K29.70 Gastritis, unspecified, without bleeding; Z95.1 Presence of aortocoronary bypass graft; Z85.038 Personal history of other malignant neoplasm of large intestine; Z79.84 Long term (current) use of oral hypoglycemic drugs; Z79.4 Long term (current) use of insulin; Z79.899 Other long term (current) drug therapy; W18.39XA Other fall on same level, initial encounter; Y93.89 Activity, other specified; Y92.198 Other place in other specified residential institution as the place of occurrence of the external cause